=== PATIENT | male | born 1950 | race Caucasian/White ===

== ENCOUNTER 2018-05-24 11:56 | Emergency (ER) | payer OTHER ==
[2018-05-24] MEDS ORDERED: BACITRACIN OINT 0.9 GM PKT TP ONE (12:35)
[2018-05-24] MEDS ORDERED: RABIES VAC(HUMAN) DIPL 2.5/KIT IM ONLY ONE (12:45)
--- NOTE | 2018-05-24 12:45 | ER Report ---
History and Physical Time Seen By MD: 12:40 Hx. of Stated Complaint: patient was bitten on the scrotum by a dog last night. patient did first aid with water and neosporin ointment HPI/ROS CHIEF COMPLAINT: Dog bite to scrotum HISTORY OF PRESENT ILLNESS: Patient is a 68-year-old male who presents to ED with a complaint of a dog bite to scrotum that occurred last night. He states that this occurred about 22 hours ago now. Patient denies any fever. He has not noted any redness or swelling in the area. He states that he has put a bandage on there and has not noted any bleeding. He did talk with the owners of the dog and they stated that the dog's vaccination status was up-to-date. He states that he did go to a local urgent care prior to coming to the emergency room and did talk with a deputy they're to report the dog bite. He states that the deputy was going to contact the owners to verify vaccination status. He states that he is up-to-date with his Tdap. REVIEW OF SYSTEMS: Constitutional: No fever, no chills Cardiovascular: No chest pain, no palpitations. Respiratory: No cough, no shortness of breath. Gastrointestinal: No abdominal pain, no vomiting. Genitourinary: No hematuria. Musculoskeletal: No back pain. Skin: See history of present illness. Neurological: No headache. Allergies: Coded Allergies: No Known Drug Allergies (Unverified , 05/24/18) Reviewed Nurses Notes: Yes Old Medical Records Reviewed: Yes Constitutional Vital Sign - Last 24 Hours 05/24/18 12:19 Temp 98.3 Pulse 58 Resp 20 B/P (MAP) 142/80 Pulse Ox 98 O2 Delivery Room Air Physical Exam General Appearance: The patient is alert, has no immediate need for airway protection and no signs of toxicity. Patient appears to be no acute distress. Respiratory: There are no retractions, lungs are clear to auscultation. Cardiovascular: Regular rate and rhythm. Gastrointestinal: Abdomen is soft and non tender, no masses, bowel sounds normal. Skin: There is a 1.5 cm linear laceration of the right scrotal area. No surrounding erythema or discharge is present. No pain with palpation of the area. Appears to be some granulation tissue forming. Musculoskeletal: Neck is supple non tender. Extremities are nontender, nonswollen and have full range of motion. Medical Decision Making ED Course/Re-evaluation ED Course Had long discussion with patient regarding possible rabies vaccination today. Discussed that he could give him the reason vaccination and immunoglobin today. He would like to wait on the immunoglobin to find out if that the piece can verify the vaccination status 1st. He would like to start the rabies vaccination series today. Will also prescribe some Augmentin cover for prophylaxis. Bacitracin and bandage will be applied to his scrotum. Decision to Disposition Date: May 24, 2018 Decision to Disposition Time: 12:53 Depart Departure Latest Vital Signs Vital Signs Date Time Temp Pulse Resp B/P (MAP) Pulse Ox O2 Delivery O2 Flow Rate FiO2 05/24/18 12:19 98.3 58 20 142/80 98 Room Air Impression: Primary Impression: Dog bite Additional Impression: Laceration of scrotum Condition: Improved Disposition: HOME OR SELF-CARE New Scripts Amoxicillin/Pot Clav 875-125 Mg Tab (AUGMENTIN 875-125 TABLET) 1 Each Tablet 1 TAB PO Q12H for 10 Days, #20 TAB Prov: LIZBETH TANNER PA-C 05/24/18 Patient Instructions: Animal Bite (ED), Laceration (ED), Laceration Without Closure (ED) Additional Instructions: Monitor for signs and symptoms of infection including redness, swelling, discharge, fever. If having any worsening or concerning symptoms may return to the emergency department. Follow-up with primary care provider in one to days. Problem Qualifiers Primary Impression: Dog bite Encounter type: initial encounter Qualified Codes: W54.0XXA - Bitten by dog , initial encounter Additional Impression: Laceration of scrotum Encounter type: initial encounter Qualified Codes: S31.31XA - Laceration without foreign body of scrotum and testes, initial encounter LIZBETH TANNER PA-C May 24, 2018 12:45
[2018-05-24] MEDS ORDERED: AMOX-559 PO (12:56)
[2018-05-24 13:20] VITALS: BP 128/81
== END 2018-05-24 13:28 | disposition home or self-care (01) ==
LOC: ER 12:07
DX: S31.35XA Open bite of scrotum and testes, initial encounter (principal); W54.0XXA Bitten by dog, initial encounter; Z23 Encounter for immunization
CPT/HCPCS: 90471; 90675; 96372; 99282; C9399